=== PATIENT | female | born 1985 | race Two or more races ===

== ENCOUNTER 2020-02-14 11:45 | Outpatient (CLI) | payer OTHER ==
[2020-02-14] MEDS ORDERED: KETO10TA2 PO (15:15)
== END 2020-02-14 11:47 | disposition home or self-care (01) ==
LOC: RAD 11:45
PROVIDERS: ATTEND General Practice
DX: R05 Cough (principal)

== ENCOUNTER 2020-02-14 12:18 | Emergency (ER) | payer OTHER ==
[~2020-02-14] VITALS: Ht 170.2 cm; Wt 98.0 kg
[2020-02-14] MEDS ORDERED: KETO10TA2 PO (15:15)
== END 2020-02-14 15:41 | disposition home or self-care (01) ==
LOC: ER 12:18
DX: M79.672 Pain in left foot (principal); Z20.828 Contact with and (suspected) exposure to other viral communicable diseases